=== PATIENT | male | born 1965 | race Caucasian/White ===

== ENCOUNTER 2019-11-30 14:28 | Emergency (ER) | payer OTHER, SELFPAY ==
[2019-11-30 14:29] VITALS: BMI 29.8
[2019-11-30 14:33] VITALS: BP 132/78; PULSE 57; RESP 18; TEMP 36.6; O2SAT 97
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
[2019-11-30] MEDS: lidocaine 2% viscous 15 mL UDC 20 ML TOPICAL (16:26)
[2019-11-30] MEDS: tetanus-diphtheria tox (adult) 0.5 mL SDV IM (18:23)
== END 2019-11-30 18:26 | disposition home or self-care (01) ==
PROVIDERS: Emergency Provider Family Medicine
DX: S50.311A Abrasion of right elbow, initial encounter (principal); S50.811A Abrasion of right forearm, initial encounter; V22.9XXA Unspecified motorcycle rider injured in collision with two- or three-wheeled motor vehicle in traffic accident, initial encounter; Z23 Encounter for immunization
CPT/HCPCS: 12345; 73030; 73070; 73090; 73100; 73130; 73562; 90714; 99283